=== PATIENT | male | born 1980 | race Two or more races ===

== ENCOUNTER 2020-04-07 07:19 | Day surgery (SDC) | payer OTHER ==
--- NOTE | 2020-04-05 12:30 | Pre-op HX & Phy Repo 2 SIG ---
DATE OF ADMISSION: 04/07/2020 The patient is scheduled for outpatient surgery April 07, 2020. HISTORY OF PRESENT ILLNESS: The patient is a 39-year-old male in overall good health, who is scheduled to undergo repair of a symptomatic epigastric hernia and left inguinal hernia as well as excision of a persistent nodule of the right forearm and skin tag of the right axilla. The patient has had an epigastric hernia lifelong, but recently has developed pain and whenever he exercises or plays with his children he has gurgling sensations and discomfort at the hernia which he pushes back in. He previously underwent repair of right inguinal hernia in 2013. He has also had a small nodule in the right forearm and a skin tag in the right axilla that bothers him repeatedly. PAST MEDICAL HISTORY: ____. MEDICATIONS: None. ALLERGIES: None. OPERATIONS: Repair of right inguinal hernia, June 2014. PHYSICAL EXAMINATION: GENERAL: The patient is 6 feet, 191 pounds. VITAL SIGNS: Within normal limits. HEENT: Within normal limits. LUNGS: Clear. HEART: Regular rhythm. ABDOMEN: In the mid epigastrium, midway between xiphoid and umbilicus, is a 2 x 3 cm reducible hernia. There is a moderate reducible left inguinal hernia. GENITOURINARY: Testes and scrotum negative. RECTAL: Negative per primary care. EXTREMITIES: Without edema. Pulses 2+ femoral to pedal bilaterally. In the mid dorsal right forearm is a 1 cm mobile firm subcutaneous nodule. In the right axilla is a 7 mm papilloma. IMPRESSION: 1. Symptomatic epigastric hernia. 2. Left inguinal hernia. 3. Nodule of right forearm. 4. Skin tag, right axilla. PLAN: Open repair of epigastric and left inguinal hernia using mesh for the inguinal hernia and possibly for the epigastric hernia based on operative findings. He will also undergo excision of the right forearm nodule and the skin tag of the right axilla. I have had a full discussion with the patient regarding the nature of the surgery, indications, alternatives, options, and risks including bleeding, infection, recurrence with or without mesh, neuritis or neuralgia in the groin, testicular or scrotal swelling or other abnormality, etc. All questions have been answered. He understands and agrees to proceed. Jose Manuel Rodriguez M.D. DR: WILLY JOB#: [id number] CC:
[~2020-04-07] VITALS: Ht 182.9 cm; Wt 94.3 kg
[2020-04-07] VITALS (12 sets, daily range): BP systolic 112–126; BP diastolic 71–77
--- NOTE | 2020-04-07 07:07 | Pre-Procedure Note/Attestation ---
Pre-Procedure Note/Attestation Complete Prior to Procedure Planned Procedure: not applicable Procedure Narrative: repair epigastric hernia, repair left inguinal hernia, excision of right forearm nodule, excision of right axillary skin tag Indications for Procedure Pre-Operative Diagnosis: epigastric and left inguinal hernia, nodule right forearm, skin tag right axilla Attestation I attest that I discussed the nature of the procedure; its benefits; risks and complications; and alternatives (and the risks and benefits of such alternatives ), prior to the procedure, with the patient (or the patient's legal financial services sales representative). I attest that, if there was a reasonable possibility of needing a blood transfusion, the patient (or the patient's legal financial services sales representative) was given the [place] [employer] standardized written summary, pursuant to the Ozzie Karl Blood Safety Act ([place] Health and Safety Code # 1645, as amended). I attest that I re-evaluated the patient just prior to the surgery and that there has been no change in the patient's H&P, except as documented below:none Jose Manuel Rodriguez MD Apr 07, 2020 07:07
[2020-04-07] MEDS ORDERED: fentaNYL 100 mcg/2 mL IV ONE (07:32)
[2020-04-07] MEDS ORDERED: Midazolam 2mg/2ml Inj ONE (07:32)
[2020-04-07] MEDS ORDERED: Succinylcholine 20mg/ml 10ml vial ONE (07:34)
[2020-04-07] MEDS ORDERED: Rocuronium Bromide 50mg/5ml Inj IV ONE (07:34)
[2020-04-07] MEDS ORDERED: Bupivacaine 0.5% Inj 30 ml vial INJ ONE (07:49)
[2020-04-07] MEDS ORDERED: Lidocaine 1% Plain 30 ml INJ ONE (07:49)
[2020-04-07] MEDS ORDERED: NeoSporin Gu Irrig 1ml Amp IRRIG ONE (07:49)
[2020-04-07] MEDS ORDERED: Bacitracin 50000 Units Vial ONE (07:49)
[2020-04-07] MEDS ORDERED: NS Irrig 1000ml IRRIG ONE ×2 (07:51→08:16)
[2020-04-07] MEDS ORDERED: LR 1000ml 1,000 ML IVLG SCH (07:52)
[2020-04-07] MEDS ORDERED: Ketorolac 30mg Inj IV PRN (08:00)
[2020-04-07] MEDS ORDERED: LR 1000ml ONE (08:00)
[2020-04-07] MEDS ORDERED: Ketorolac 30mg Inj ONE (08:00)
[2020-04-07] MEDS ORDERED: Meperidine 25mg/0.5ml Inj (FOR RIGORS ONLY) IV PRN (08:00)
[2020-04-07] MEDS ORDERED: NS Irrig 1000ml ONE (08:00)
[2020-04-07] MEDS ORDERED: Sterile Water Irrig 1000ml IRRIG ONE (08:00)
[2020-04-07] MEDS ORDERED: Morphine Sulfate 10mg/ml Inj ONE (08:36)
--- NOTE | 2020-04-07 08:48 | Anethesia Preoperative Eval ---
Anesthesia Pre-op PMH/ROS General Date of Evaluation: Apr 07, 2020 Time of Evaluation: 07:42 Anesthesiologist: Mehnaz ASA Score: ASA 2 Mallampati Score Class I : Soft palate, uvula, fauces, pillars visible Class II: Soft palate, uvula, fauces visible Class III: Soft palate, base of uvula visible Class IV: Only hard plate visible Mallampati Classification: Class II Surgeon: Michael Diagnosis: L injuinal and epigastric hernia Surgical Procedure: Hernia repair Anesthesia History: none Family History: no anesthesia problems Allergies: Coded Allergies: No Known Allergies (Unverified , 04/07/20) Medications: see eMAR Patient NPO?: Yes Past Medical History Cardiovascular: Denies: HTN, CAD, DE, valve dz, arrhythmia, other Pulmonary: Denies: asthma, COPD, CHAGO, other Gastrointestinal/Genitourinary: Reports: GERD - mild; Denies: CRI, ESRD, other Neurologic/Psychiatric: Reports: depression/anxiety; Denies: dementia, CVA, TIA, other Endocrine: Denies: DM, hypothyroidism, steroids, other HEENT: Denies: cataract (L), cataract (R), glaucoma, LOVELOCK (L), LOVELOCK (R), other Hematology/Immune: Denies: anemia, DVT, bleeding disorder, other Musculoskeletal/Integumentary: Denies: OA, RA, DJD, DDD, edema, other PMH Narrative: as above PSxH Narrative: R inguinal hernia repair Anesthesia Pre-op Phys. Exam Physician Exam Last Vital Signs Date Time Temp Pulse Resp B/P (MAP) Pulse Ox O2 Delivery O2 Flow Rate FiO2 04/07/20 07:51 Room Air 04/07/20 07:45 97.4 57 18 120/72 100 Constitutional: NAD Neurologic: CN 2-12 intact Cardiovascular: RRR, no M/R/G Respiratory: CTA Gastrointestinal: S/NT/ND Airway Exam Mallampati Score: Class II MO: full Neck: flexible ROM: full Teeth: intact Dentures: no upper, no lower Anesthesia Pre-op A/P Labs see chart Studies Pre-op Studies: EKG - NSR Risk Assessment & Plan Assessment: ASA 2 Plan: GA with ETT Status Change Before Surgery: No Pre-Antibiotics Drug: Ancef 2gr Given Within 1 Hr of Incision: Yes Time Given: 08:28 Eldon Darby MD Apr 07, 2020 08:48
--- NOTE | 2020-04-07 10:10 | Brief Operative Note ---
Immediate Post Operative Note Operative Note Pre-op Diagnosis: epigastric and left inguinal hernia, nodule right forearm, skin tag right axilla Procedure: repair left inguinal hernia with prolene mesh; repair epigastric hernia; excision of right forearm nodule, excision of right axillary skin tag Post-op Diagnosis: same Post-op Diagnosis: same as pre-op Findings: consistent w/pre-op dx studies Surgeon: eusebio Anesthesiologist: doug Anesthesia: general Specimen: yes - lipoma of left spermatic cord, right forearm nodule, right axillary skin tag Complications: none Condition: stable Fluids: see anesthesia record Estimated Blood Loss: minimal Drains: none Implant(s) used?: Yes - prolene mesh left inguinal hernia repair Jose Manuel Rodriguez MD Apr 07, 2020 10:10
[2020-04-07] MEDS ORDERED: HYDROcodone/Acetamin 5/325 tab ORAL PRN (10:15)
[2020-04-07] MEDS ORDERED: HYDROmorphone 1mg/ml Carpuject SUBQ PRN (10:15)
--- NOTE | 2020-04-07 10:20 | Immediate Post-Op Evaluation ---
Immediate Post-Op Evalulation Immediate Post-Op Evalulation Procedure: L injuinal and epigastric hernia repair Date of Evaluation: Apr 07, 2020 Time of Evaluation: 10:19 IV Fluids: 1000 Blood Products: none Estimated Blood Loss: min Urinary Output: none Blood Pressure Systolic: 116 Blood Pressure Diastolic: 72 Pulse Rate: 82 Respiratory Rate: 20 O2 Sat by Pulse Oximetry: 99 Temperature (Fahrenheit): 97.8 Pain Score (1-10): 1 Nausea: No Vomiting: No Complications none Patient Status: awake, patent, extubated Hydration Status: adequate Eldon Darby MD Apr 07, 2020 10:20
--- NOTE | 2020-04-07 12:06 | 48 Hour Post Anesthesia Eval ---
Post Anesthesia Evaluation Procedure: L injuinal and epigastric hernia repair Date of Evaluation: Apr 07, 2020 Time of Evaluation: 12:04 Blood Pressure Systolic: 116 0: 72 Pulse Rate: 78 Respiratory Rate: 20 Temperature (Fahrenheit): 97.6 O2 Sat by Pulse Oximetry: 98 Airway: patent Nausea: No Vomiting: No Pain Intensity: 3 Hydration Status: adequate Cardiopulmonary Status: stable Mental Status/LOC: patient returned to baseline Follow-up Care/Observations: n/a Post-Anesthesia Complications: none Follow-up care needed: ready to discharge Eldon Darby MD Apr 07, 2020 12:06
--- NOTE | 2020-04-07 12:30 | Operative Note - Dictated ---
DATE OF OPERATION: 04/07/2020 SURGEON: Jose Manuel Rodriguez MD. SUPERVISOR WEAVING: None. ANESTHESIOLOGIST: Eldon Darby MD. TYPE OF ANESTHESIA: General. PREOPERATIVE DIAGNOSES: 1. Epigastric hernia. 2. Left inguinal hernia. 3. Right forearm nodule. 4. Right axillary skin tag. POSTOPERATIVE DIAGNOSES: 1. Epigastric hernia. 2. Left inguinal hernia. 3. Right forearm nodule. 4. Right axillary skin tag. OPERATION PERFORMED: 1. Repair of epigastric hernia. 2. Repair of left inguinal hernia with Prolene mesh. 3. Excision of right forearm nodule. 4. Excision of right axillary skin tag. DESCRIPTION OF PROCEDURE: The patient was taken to the operating room and under general anesthesia with sequential compression device stockings in place, he was prepped and draped in usual fashion with attention first directed to the hernia repairs. The epigastric hernia was approached with a transverse incision achieving hemostasis with cautery. The hernia protrusion was properitoneal fat. A circumferential dissection down to a small fascial defect was performed. The fascial opening was extended slightly to the left side and then the herniated material readily reduced. The repair was accomplished without tension in transverse fashion with interrupted inverted #0 Prolene sutures. A very satisfactory repair was achieved. The irrigation was used. Subcutaneous tissues closed with 3-0 Vicryl and the skin closed with continuous 4-0 Monocryl subcuticular suture. Attention was then directed to the left inguinal hernia where a curvilinear left groin incision was made achieving hemostasis with cautery and opening the external oblique aponeurosis to the external ring. There was a direct inguinal hernia. The spermatic cord was very bulky with a large lipoma laterally. The lipoma was dissected up to the internal ring, clamped, excised and ligated with 2-0 Vicryl. The ilioinguinal nerve was protected. The spermatic cord was mobilized at the pubic tubercle with a Francesco and elevated to the internal ring. The repair was accomplished by taking a piece of Prolene mesh, cut and tapered appropriately measuring approximately 5 x 9 cm. First, the inferior edge of the mesh was sutured to the shelving edge of inguinal ligament starting at pubic tubercle and extending lateral to the internal ring with continuous 2-0 Prolene. Then, the lateral aspect of the mesh was split longitudinally so the tails could encircle the cord. Then, the medial-superior edge of the mesh was sutured through transversus tendon again starting at pubic tubercle and extending lateral to the internal ring with continuous 2-0 Prolene. One suture was taken just lateral to the internal ring to tack the superior tail over the inferior tail to the inguinal ligament with 2-0 Prolene. The newly created internal ring of mesh did not constrict the cord. The field was irrigated with antibiotic solution and hemostasis was seen to be secured. The external oblique aponeurosis was closed over the spermatic cord with continuous 2-0 Vicryl. Dar's fascia closed with interrupted 3-0 Vicryl as well as subcutaneous tissues and the skin closed with continuous 4-0 Monocryl subcuticular suture. Tincture of benzoin and half-inch Steri-Strips were applied to both incisions followed by dry sterile dressings. The left testis was readily retracted well down into the scrotum. The patient was then re-prepped and draped and in the dorsal aspect of the mid right forearm, a small nodule was approach with a longitudinal incision dissecting what appeared to be an epidermal inclusion cyst from the subcutaneous tissues. Hemostasis was achieved with cautery. A 4-0 Vicryl suture was placed subcutaneous and the skin closed with 4-0 Monocryl subcuticular suture followed by Steri-Strips and dry sterile dressing. The right axillary skin tag was excised and the base cauterized. The patient tolerated the surgery well and left the operating room in good condition. Jose Manuel Rodriguez M.D. DR: ROOPA JOB#: [id number] CC:
[2020-04-07] MEDS ORDERED: D5 1/2NS 1,000 ML IV SCH (17:00)
== END 2020-04-07 12:40 | disposition home or self-care (01) ==
LOC: SUR 07:19
DX: K43.9 Ventral hernia without obstruction or gangrene (principal); K40.90 Unilateral inguinal hernia, without obstruction or gangrene, not specified as recurrent; L91.8 Other hypertrophic disorders of the skin; D23.61 Other benign neoplasm of skin of right upper limb, including shoulder; F32.9 Major depressive disorder, single episode, unspecified; F41.9 Anxiety disorder, unspecified
CPT/HCPCS: 11200; 25075; 49505; 49570; 94003; C1781; J0330; J1885; J2001; J2250; J2270; J2405; J2704; J3010; J3490; J7120; U0002; 94150; J2180